=== PATIENT | male | born 1960 | race African-American/Black ===

== ENCOUNTER 2020-12-10 09:00 | Emergency (ER) | payer MEDICAID ==
[~2020-12-10] VITALS: Ht 175.3 cm; Wt 97.0 kg
[2020-12-10] MEDS ORDERED: LISI10TA5 PO (09:13)
[2020-12-10] MEDS ORDERED: ATOR-2 PO (09:13)
[2020-12-10] MEDS ORDERED: HYDR25TA PO (09:13)
[2020-12-10] MEDS ORDERED: DIPHENHYDRAMINE 50MG/ML VIAL IV ONE (09:15)
[2020-12-10] MEDS ORDERED: METHYLPREDNISOLONE SOD SUCC 125 MG/2 ML VIAL IV ONE (09:15)
[2020-12-10 09:40] LABS: HEMOGLOBIN. 13.7 g/dL (14.0-18.0); MEAN CORPUSCULAR HEMOGLOBIN 25.9 pg (28.0-32.0); MEAN CORPUSCULAR VOLUME 79.6 fL (80.0-94.0); MEAN PLATELET VOLUME 8.2 fl (7.4-10.4); PLATELET 196 x1000/uL (130-400); RED BLOOD CELL COUNT 5.28 mill/uL (4.7-6.1); RED CELL DISTRIBUTION WIDTH 14.3 % (11.6-14.6)
[2020-12-10 09:48] LABS: CHLORIDE 106 mEq/L (98-107)
[2020-12-10 10:54] LABS: ATYPICAL LYMPHOCYTES 7
[2020-12-10 10:55] LABS: PLATELET ESTIMATE NORMAL
[2020-12-10] MEDS ORDERED: CLONIDINE 0.1MG TABLET PO PRN (13:15)
[2020-12-10] MEDS ORDERED: DIPHENHYDRAMINE 50MG/ML VIAL IV PRN (13:15)
[2020-12-10] MEDS ORDERED: METHYLPREDNISOLONE SOD SUCC 125 MG/2 ML VIAL IV SCH (13:15)
[2020-12-10] MEDS ORDERED: DOCUSATE SODIUM 100MG CAPSULE PO PRN (13:15)
[2020-12-10] MEDS ORDERED: ACETAMINOPHEN 325MG TABLET PO PRN (13:15)
[2020-12-10] MEDS ORDERED: GUAIFENESIN 200MG/10ML SUGAR FREE UDC PO PRN (13:15)
[2020-12-10] MEDS ORDERED: ONDANSETRON HCL 4MG/2ML INJ IV PRN (13:15)
[2020-12-10] MEDS ORDERED: MAGNESIUM/ALUMINUM HYDROXIDE/SIMETHICONE 30ML UDC PO PRN (13:15)
[2020-12-10 14:30] VITALS: BP 156/82
[2020-12-11] MEDS ORDERED: PANTOPRAZOLE SODIUM 40 MG/VIAL IV SCH (09:00)
== END 2020-12-10 15:07 | disposition left against medical advice (07) ==
LOC: ER 09:17 → CANBEDREQ 15:07
DX: T78.3XXA Angioneurotic edema, initial encounter (principal); T46.4X5A Adverse effect of angiotensin-converting-enzyme inhibitors, initial encounter; N17.9 Acute kidney failure, unspecified; R00.1 Bradycardia, unspecified; I10 Essential (primary) hypertension; Y92.018 Other place in single-family (private) house as the place of occurrence of the external cause; Z79.899 Other long term (current) drug therapy; Z96.649 Presence of unspecified artificial hip joint
CPT/HCPCS: 36415; 80053; 84484; 85025; 86850; 86900; 86901; 86927; 93005; 96374; 96375; 99291; J1200; J2930; P9017

== ENCOUNTER → 2023-11-27 | Emergency (ER) | payer MEDICAID, OTHER ==
[~2023-11-27] VITALS: Ht 180.3 cm; Wt 90.0 kg
[~2023-11-27] MED LIST: ATOR-2 PO; HYDR25TA PO; LISI10TA26 PO
[2023-11-27 10:28] VITALS: BP 137/79; PULSE 85; RESP 20; TEMP 98.4; O2SAT 99
== END ==
LOC: ER 11:28
DX: M25.561 Pain in right knee (principal); Z53.21 Procedure and treatment not carried out due to patient leaving prior to being seen by health care provider
CPT/HCPCS: 99281

== ENCOUNTER 2024-01-27 17:57 | Emergency (ER) | payer MEDICARE ==
[~2024-01-27] VITALS: Ht 175.3 cm; Wt 91.0 kg
[2024-01-27 18:01] VITALS: TEMP 98.2; O2SAT 97
[2024-01-27] MEDS ORDERED: FAMOTIDINE 20MG/2ML VIAL IV ONE (18:45)
[2024-01-27] MEDS ORDERED: DIPHENHYDRAMINE 50MG/ML VIAL IV ONE (18:45)
[2024-01-27] MEDS ORDERED: METHYLPREDNISOLONE SOD SUCC 125MG/2ML (ACT-O-VIAL) IV ONE (18:45)
[2024-01-27 19:18] LABS: BASOPHILS % 0.9 % (0.0-2.0); DIFFERENTIAL COMMENT 0; EOSINOPHILS % 1.6 % (0.0-5.0); HEMATOCRIT. 35.7 % (42.0-52.0); HEMOGLOBIN. 11.7 g/dL (14.0-18.0); LYMPHOCYTES % 43.7 % (20.0-50.0); MEAN CORPUSCULAR HEMOGLOBIN 25.4 pg (28.0-32.0); MEAN CORPUSCULAR HGB CONC 32.7 g/dL (31.0-37.0); MEAN CORPUSCULAR VOLUME 77.6 fL (80.0-94.0); MEAN PLATELET VOLUME 8.1 fl (7.4-10.4); MONOCYTES % 7.7 % (2.0-8.0); NEUTROPHILS % 46.1 % (40.0-76.0); PLATELET 325 x1000/uL (130-400)
[2024-01-27 19:36] LABS: ALANINE AMINOTRANSFERASE 17 IU/L (10-49); ALBUMIN 4.7 g/dL (3.2-4.8); ASPARTATE AMINOTRANSFERASE 20 IU/L (<34); BILIRUBIN TOTAL 0.2 mg/dL (0.1-1.0); CALCIUM 9.1 mg/dL (8.7-10.4); CARBON DIOXIDE 29 mEq/L (21-32); CHLORIDE 105 mEq/L (98-107); CREATININE 1.5 mg/dL (0.6-1.3); GLUCOSE 90 mg/dL (70-105); POTASSIUM 3.5 mEq/L (3.5-5.1); PROTEIN TOTAL 8.1 g/dL (6.0-8.3); SODIUM 140 mEq/L (136-145); UREA NITROGEN BLOOD 19 mg/dL (9-23)
[2024-01-27 20:10] LABS: INR 0.9; PARTIAL THROMBOPLASTIN TIME 30.2 sec (23.4-31.0); PROTHROMBIN TIME 9.8 sec (9.6-11.0)
[2024-01-27] MEDS: METHYLPREDNISOLONE SOD SUCC 125MG/2ML (ACT-O-VIAL) IV NR (20:30)
[2024-01-27] MEDS: DIPHENHYDRAMINE 50MG/ML VIAL IV NR (20:30)
[2024-01-27] MEDS: FAMOTIDINE 20MG/2ML VIAL IV NR (20:30)
[2024-01-27] MEDS ORDERED: B50 MT (23:08)
[2024-01-27] MEDS ORDERED: P50 MT (23:08)
[2024-01-27] MEDS ORDERED: FAMO-135 MT (23:08)
[2024-01-27 23:48] VITALS: BP 135/76; PULSE 66; RESP 19
== END 2024-01-27 23:49 | disposition home or self-care (01) ==
LOC: ER 17:57
DX: T78.49XA Other allergy, initial encounter (principal); I10 Essential (primary) hypertension; Z98.890 Other specified postprocedural states; X58.XXXA Exposure to other specified factors, initial encounter
CPT/HCPCS: 99284; 96374; 96375; 80053; 85025; 85610; 85730; 36415; J1200; J3490; J2930